=== PATIENT | male | born 1995 ===

== ENCOUNTER → 2018-11-27 | Outpatient (CLI) | payer SELFPAY ==
[~2018-11-27] MED LIST: IOPAMIDOL 76% 100 ML INFUS BTL 100 ML ONE
--- NOTE | 2018-11-27 16:45 | RADIOLOGY IMAGING REPORT ---
FACILITY: [facility] PATIENT NAME: Hieu Arora : 1995 MR: [id number] V: [id number] EXAM DATE: ORDERING PHYSICIAN: PATRICE RAMACHANDRAN TECHNOLOGIST: Location: [facility] Patient: Hieu Arora : 1995 Visit/Account:[id number] Date of Sevice: 11/27/2018 CT ABDOMEN PELVIS W & W/O CONTRAST Indication: Right lower quadrant pain and right upper quadrant pain for 2 days. Comparison: None. Technique: CT lung bases to the pubic symphysis were obtained without and with IV contrast. 75 cc of Isovue 370 was used. One of the following dose optimization techniques was utilized in the performance of this exam: autom ated exposure control; adjustment of the mA and/or kV according to the patient's size; or use of an i terative reconstruction technique. Specific details can be referenced in the facility's radiology CT exam operational policy. Findings: Liver/gallbladder: Liver demonstrates normal enhancement. Gallbladder is unremarkable.. Spleen: Normal. Adrenals: Normal. Pancreas: Normal enhancement without evidence of mass. Kidneys/: Right and left kidney demonstrate normal enhancement without evidence of hydronephrosis or mass. Pelvic : Urinary bladder is normal. The prostate is normal. GI: The colon small bowel and stomach are normal. The appendix is normal. Vessels/spaces/nodes: Negative. Bones/soft tissues: There are no lytic or blastic bone lesions. Soft tissues are normal. Lung bases: Lung bases are clear. Impression: Normal CT abdomen and pelvis. The appendix is normal. Report Dictated By: Gómez Shepherd at 11/27/2018 4:31 PM Report E-Signed By: Gómez Shepherd at 11/27/2018 4:38 PM WSN:[id number]
== END ==
LOC: CT 15:35
PROVIDERS: ATTEND Family Medicine
DX: R10.9 Unspecified abdominal pain (principal)
CPT/HCPCS: 74178; Q9967